=== PATIENT | male | born 1990 | race Caucasian/White ===

== ENCOUNTER 2016-10-29 00:11 | Emergency (ER) | payer OTHER ==
[~2016-10-29] VITALS: Ht 175.3 cm; Wt 95.3 kg
[2016-10-29] MEDS ORDERED: KETOROLAC 60 MG/2 ML VIAL (J1885) IM ONE (01:45)
[2016-10-29 02:39] VITALS: BP 135/85
== END 2016-10-29 02:41 | disposition home or self-care (01) ==
LOC: M ED 02:00
DX: F39 Unspecified mood [affective] disorder (principal); G43.909 Migraine, unspecified, not intractable, without status migrainosus; F41.9 Anxiety disorder, unspecified

== ENCOUNTER → 2018-04-23 | Outpatient (REF) | payer MEDICAID ==
[2018-04-23 23:08] LABS: CHLAMYDIA DNA AMPLIFICATION NEGATIVE (NEGATIVE); GC DNA AMPLIFICATION NEGATIVE (NEGATIVE)
== END ==
LOC: M SFHCLERA 17:31
DX: Z20.9 Contact with and (suspected) exposure to unspecified communicable disease (principal)